=== PATIENT | male | born 1950 | race Caucasian/White ===

== ENCOUNTER 2021-08-10 02:25 | Inpatient (IN) | payer OTHER ==
[~2021-08-10] VITALS: Ht 172.7 cm; Wt 68.0 kg
[2021-08-10 02:28] VITALS: BP 92/61
[2021-08-10 03:17] LABS: URINE BILIRUBIN 2+ (Negative); URINE BLOOD NEGATIVE (Negative); URINE CLARITY CLEAR; URINE COLOR YELLOW; URINE GLUCOSE-RANDOM* NEGATIVE (Negative); URINE KETONES 1+ (Negative); URINE LEUKOCYTES-REFLEX NEGATIVE (Negative); URINE NITRITE-REFLEX NEGATIVE (Negative); URINE PROTEIN (DIPSTICK) NEGATIVE (Negative)
[2021-08-10 03:17] LABS: ABSOLUTE NEUTROPHILS 2.2 thou/uL (1.4-8.2); BASOPHILS 0.5 % (0.0-2.0); EOSINOPHILS 0.1 % (0.0-3.0); HEMATOCRIT 35.9 % (42.0-52.0); HEMOGLOBIN 11.8 gm/dL (14.0-18.0); LYMPHOCYTES 42.1 % (24.0-44.0); MCH 32.7 pg (26.0-34.0); MCHC 32.9 g/dL (28.0-37.0); MCV 99.5 fL (80.0-100.0); MONOCYTES 10.2 % (1.0-8.0); PLATELET COUNT 76 thou/uL (150-400); POLYS 47.1 % (36.0-66.0); RBC 3.61 mil/uL (4.50-6.00); RDW 15.1 % (10.5-14.5); WBC 4.7 thou/uL (4.0-11.0)
[2021-08-10 03:19] LABS: BE(vivo) 2.5 mmol/L (-2 to +3); HCO3 26.1 mmol/L (22.0-26.0); PO2 118.8 mmHg (80.0-100.0); pH 7.467 (7.360-7.450); sO2 98.5 % (92.0-98.0)
[2021-08-10 03:22] LABS: ICTOTEST (BILI CONFIRMATORY) Positive (Negative)
[2021-08-10] MEDS ORDERED: ATORVASTATIN CA80 MG PO (03:23)
[2021-08-10] MEDS ORDERED: VITAMIN B-12100 MC1 PO (03:24)
[2021-08-10 03:25] LABS: AMP/METHAMP Negative (Negative); BARBITURATES Negative (Negative); BENZODIAZEPINES Negative (Negative); COCAINE Negative (Negative); METHADONE Negative (Negative); OPIATES Negative (Negative); PCP Negative (Negative)
[2021-08-10] MEDS ORDERED: FLOMAX0.4 MG PO (03:25)
[2021-08-10] MEDS ORDERED: DIVALPROEX PO (03:25)
[2021-08-10] MEDS ORDERED: LASIX 40 MG TAB40 MG PO (03:25)
[2021-08-10] MEDS ORDERED: MAGNESIUM OXID400 M2 PO (03:26)
[2021-08-10] MEDS ORDERED: METOPROLOL PO (03:26)
[2021-08-10 03:30] LABS: ANION GAP 16 mmol/L (7-16); BUN 11 mg/dL (7-18); CALCIUM 7.7 mg/dL (8.5-10.1); CHLORIDE 97 mmol/L (98-107); CO2 21 mmol/L (21-32); CREATININE 1.2 mg/dL (0.7-1.3); GLUCOSE 77 mg/dL (74-106); POTASSIUM 3.4 mmol/L (3.5-5.1); SODIUM 134 mmol/L (136-145)
[2021-08-10 03:41] LABS: ALBUMIN 1.9 g/dL (3.4-5.0); MAGNESIUM 1.4 mg/dL (1.8-2.4); SALICYLATE < 2.0 mg/dL (2.8-20.0); SGOT 155 U/L (15-37); SGPT 50 U/L (16-63); TOTAL BILIRUBIN 1.4 mg/dL (0.2-1.0); TOTAL PROTEIN 5.9 g/dL (6.4-8.2)
[2021-08-10 03:56] LABS: APTT 30.6 Seconds (24.5-32.8); INR 1.2
[2021-08-10 07:20] VITALS: BP 117/65
--- NOTE | 2021-08-10 07:21 | EKG ---
[place] [address] [facility] [place] [address] ELECTROCARDIOGRAM REPORT Name: CLINTON RENTERIA Room #: 170-11 ADM IN M.R.#: [id number] Admission: 08/10/21 Attend Phys: Mack Nguyễn MD Discharge: Date of : 46 Report #: [id number] [facility] ED Test Date: 2021-08-10 Test Time: 03:35:29 Pat Name: CLINTON RENTERIA Department: Room: 170 Gender: M Nicker And Breaker: kathie corbin : 1950 Requested By: Jackson Morris Order Number: [id number] MD: Mor Laird Measurements Intervals [place] Rate: 53 P: -2 DC: 163 QRS: 0 QRSD: 89 T: 32 QT: 603 QTc: 567 Interpretive Statements Sinus rhythm Borderline low voltage, extremity leads Nonspecific repol abnormality, diffuse leads Prolonged QT interval No previous ECG available for comparison Electronically Signed On 08-10-2021 7:21:11 NATURALIST by Mor Laird [email or web address] <ELECTRONICALLY SIGNED> By: Mor Laird MD, [facility] 08/10/21720 0335 0335 Mor Laird MD, FACC /EPI
--- NOTE | 2021-08-10 08:33 | NUR ---
US AT BEDSIDE
[2021-08-10 12:15] VITALS: BP 106/65
--- NOTE | 2021-08-10 14:28 | NUR ---
INITIAL ASSESSMENT: LEVI reviewed chart and spoke with nursing and attending physician. Pt was admitted from home due to AMS/hepatic encephalopathy. Pt is currently in the ER, awaiting for a bed assignment. Pt with hx of billiary stricture s/p stent placement, hypothyroidism, Cirrhosis of the liver, and bipolar. Pt is currently on 2L of O2 and IV abx. GI consulted. Per chart, pt was recently at the [facility]. LEVI met with pt at bedside. Pt is alert/orientated. Pt requests SW to contact his s/o, Kamila for info. LEVI left voice message for Kamila ([phone]). LEVI is following to assist as needed with discharge planning.
[2021-08-10 16:14] VITALS: BP 125/68
[2021-08-10 20:16] VITALS: BP 106/65
[2021-08-10 22:20] VITALS: BP 137/73
[2021-08-11] VITALS (7 sets, daily range): BP systolic 113–155; BP diastolic 60–78
[2021-08-11 05:13] LABS: ALBUMIN 1.7 g/dL (3.4-5.0); CALCIUM 7.8 mg/dL (8.5-10.1); CREATININE 0.8 mg/dL (0.7-1.3); MAGNESIUM 2.1 mg/dL (1.8-2.4); POTASSIUM 3.4 mmol/L (3.5-5.1); TOTAL BILIRUBIN 1.3 mg/dL (0.2-1.0); TOTAL PROTEIN 5.3 g/dL (6.4-8.2)
[2021-08-11 05:15] LABS: ABSOLUTE NEUTROPHILS 2.5 thou/uL (1.4-8.2); BASOPHILS 0.6 % (0.0-2.0); EOSINOPHILS 0.2 % (0.0-3.0); HEMATOCRIT 36.3 % (42.0-52.0); HEMOGLOBIN 12.1 gm/dL (14.0-18.0); LYMPHOCYTES 28.4 % (24.0-44.0); MCHC 33.4 g/dL (28.0-37.0); PLATELET COUNT 54 thou/uL (150-400); POLYS 56.8 % (36.0-66.0); RBC 3.66 mil/uL (4.50-6.00); RDW 15.3 % (10.5-14.5); WBC 4.5 thou/uL (4.0-11.0)
--- NOTE | 2021-08-11 06:11 | NUR ---
PT ADMITTED TO FLOOR FROM ED AROUND 2200. PT ASSESSED TO BE AOX3 70M PT PRESENTING WITH HEPATIC ENCEPHALOPATHY SECONDARY TO FAILED BILIARY STENT. PT IS STABLE ON ROOM AIR, FLUIDS INFUSING THROUGH L FOREARM IV, SOME BRUISING, BAIG PATENT, SR ON THE MONITOR, OLD LAP SITE ON BELLY WITH DERMABOND, AND AFEBRILE. PT WAS ABLE TO REST THROUGHOUT THE NIGHT WITH NO COMPLAINTS, VSS. PT WILL NEED TO SIGN CONSENTS WHEN HE IS MORE ORIENTED AND ALERT. NO FURTHER COMPLAINTS AT THIS TIME, WILL CONT TO MONITOR.
--- NOTE | 2021-08-11 12:08 | NUR ---
ASSUMED PT CARE THIS AM. PT IS ALERT & ORIENTED X2 AND CONFUSED. PT HAS IV SITE ON LAC. PT IS ON TELE MONITOR ON. PT IS ON CLEAR LIQUID DIET. PT HAS BAIG CATH IN PLACE. PT HAD ACCIDENTALLY FALL THIS AM AND INFORMED HOUSE SUP, HOSPITALIST AND FAMILY. PLACED 4L NC O2. SENT MRSA PCR TO LAB THIS AM. PT ON THE BED SLEEPING, BED ON THE LOWEST POSITION, SIDE RAILS UP, CALL LIGHT WITHIN REACH. WILL CONTINUE TO MONITOR PT. FOLLOW POC.
--- NOTE | 2021-08-11 16:43 | NUR ---
Discussed during los with the attending physician. Lul left message with his sig other zi, # [phone], requested a call back. Possible will requiring skilled stay before dc home.
[2021-08-12 00:21] VITALS: BP 127/72
[2021-08-12 05:25] VITALS: BP 128/83
--- NOTE | 2021-08-12 05:50 | NUR ---
ASSUMED CARE OF PT AT 1900. PT CONTINUES TO BE AOX2 70M PRESENTING WITH HEPATIC ENCEPHALOPATHY. PT WAS ABLE TO REST TRHOUGHOUT THE NIGHT IN BED WITH NO COMPLAINTS, VSS. PT IS STABLE ON 2L O2, SR ON TELEMETRY, LAC IV RUNNING NS, BAIG PATENT, AND ALL FALL PRECAUTIONS IN PLACE. WILL CONT TO MONITOR AND PASS ON TO DAY SHIFT RN.
[2021-08-12 07:40] VITALS: BP 154/75
--- NOTE | 2021-08-12 08:00 | NUR ---
referral sent to [facility].
[2021-08-12 11:17] VITALS: BP 147/86
--- NOTE | 2021-08-12 11:26 | HC ---
[facility] [place] [address] CONSULTATION Name: CLINTON RENTERIA Room #: 439-P ADM IN M.R.#: [id number] Admission: 08/10/21 Attend Phys: Mack Nguyễn MD Discharge: Date of : 46 Report #: [id number] THIS REPORT FOR: cc: [facility] - Clinic physician unknown [facility] - Clinic physician unknown Jared Angeles MD ~ DATE OF SERVICE: 08/11/2021 INFECTIOUS DISEASE CONSULTATION ATTENDING PHYSICIAN: Dr. Nguyễn. REASON FOR EVALUATION: Possible sepsis, suspected obstructive process involving the biliary tract. HISTORY OF PRESENT ILLNESS: Chart reviewed. The patient examined. This is a 70-year-old gentleman with fairly significant medical history, presented to outside hospital with marked hyperbilirubinemia, elevated liver functions. Evaluation suggested an obstructive process. He has been through procedures including ERCP, also liver biopsy, awaiting path results apparently. He had been discharged. He apparently had a fall, perhaps attributable to a syncopal episode. He is unable to give too many details of his history. He does admit to abdominal pain. Initial evaluation, initial ABGs, pO2 of 118.8 on 2.5 liters. Urinalysis otherwise unremarkable. Noted total bilirubin of 1.4 secretion previous, mildly elevated transaminases, alkaline phosphatase of 518. Coronavirus testing was negative. Lactic acid of 7.7. CT of the head showed no acute intracranial process. CT of the C-spine showed no acute fractures, subluxation. CT of the chest, abdomen, and pelvis, moderate right pleural effusion, markedly distended gallbladder with abnormal mural thickening, common bile duct stent is in place with moderate intrahepatic biliary dilatation, ill-defined low attenuation lesions in the right hepatic lobe, pleural thickening of the cecum. Chest x-ray noted effusion, right middle and lower lung opacities. Procalcitonin 0.18. Blood cultures collected at the time of admission are sterile thus far. ALLERGIES: HALDOL. MEDICATIONS: Include tamsulosin, divalproex, Zosyn, vancomycin, ipratropium, albuterol inhaler, lactulose, ondansetron as needed. PAST MEDICAL HISTORY: History of hypothyroidism; previous history of pancreatitis, post-ERCP; recurrent urinary tract infections; history of bipolar disease; anxiety disorder; biliary obstructive process. SOCIAL HISTORY: Former smoker, occasional ethanol, regular user of marijuana. [address] [address] CONSULTATION Name: CLINTON RENTERIA Room #: 439-P [facility] IN M.R.#: [id number] Admission: 08/10/21 Attend Phys: Mack Nguyễn MD Discharge: Date of : 46 Report #: [id number] PHYSICAL EXAMINATION: GENERAL: Appears chronically ill and undernourished, mild to moderate distress. VITAL SIGNS: Temperature 97.8, pulse 77, respirations 16, BP 118/71. SKIN: Warm, dry, no rashes. HEENT: Normocephalic. Extraocular muscles intact. Nasal cannula in place. NECK: Supple. LUNGS: Diminished breath sounds bilaterally. HEART: Regular, soft systolic murmur. ABDOMEN: Mildly distended, mildly firm, may have a mild degree of tenderness on the right upper quadrant. GENITOURINARY AND RECTAL: Deferred. LABORATORY DATA: Recent electrolytes, sodium 138, potassium 3.4, chloride 100, bicarbonate is 27, anion gap of 11, BUN and creatinine 7 and 0.8, glucose of 64, AST of 149, ALT of 47, alkaline phosphatase 47, total bilirubin of 1.3, albumin 17. Total protein 5.3, estimated GFR of 95. CBC: White count of 4.5, H and H 12.1 and 36.3, platelets of 54. Procalcitonin less than 0.18. ASSESSMENT AND PLAN: Probable hepatobiliary obstructive process, certainly could be complicated by infection, low-grade cholangitis. It is reasonable continue empiric therapy. Thank you for allowing me to discontinue the vancomycin and Zosyn to give us reasonable coverage including gram-negative, gram-positive including strep as well as anaerobes, noted evaluation ongoing further define his situation, discussed with GI. They are attempting to get the path report. Remains quite ill at this point. He is at risk for clinical deterioration, monitor expectantly. Continue supportive care. <ELECTRONICALLY SIGNED> By: Jared Angeles MD 08/12/21 1126 1511 0056 Jared Angeles MD /nt
[2021-08-12 15:09] VITALS: BP 115/79
[2021-08-12 19:20] VITALS: BP 107/71
[2021-08-13] VITALS (7 sets, daily range): BP systolic 101–142; BP diastolic 64–78
--- NOTE | 2021-08-13 04:24 | NUR ---
RECEIVED CARE OF THIS PATIENT AT 1900. PATIENT ALERT AND ORIENTED TO PERSON ONLY. CONFUSED. BAIG PATENT. REMAINS ON BEDREST. DENIES PAIN. SLEPT MOST OF NIGHT.
[2021-08-13 10:33] LABS: EOSINOPHILS 0.3 % (0.0-3.0); HEMATOCRIT 35.7 % (42.0-52.0); HEMOGLOBIN 11.9 gm/dL (14.0-18.0); LYMPHOCYTES 28.6 % (24.0-44.0); MCH 32.9 pg (26.0-34.0); MCHC 33.3 g/dL (28.0-37.0); MCV 98.8 fL (80.0-100.0); POLYS 52.1 % (36.0-66.0); RBC 3.61 mil/uL (4.50-6.00); RDW 15.4 % (10.5-14.5); WBC 3.9 thou/uL (4.0-11.0)
[2021-08-13 10:54] LABS: ALBUMIN 1.7 g/dL (3.4-5.0); CALCIUM 8.1 mg/dL (8.5-10.1); CREATININE 0.9 mg/dL (0.7-1.3); POTASSIUM 3.2 mmol/L (3.5-5.1); TOTAL BILIRUBIN 1.4 mg/dL (0.2-1.0); TOTAL PROTEIN 5.6 g/dL (6.4-8.2)
[2021-08-13 13:31] LABS: PLATELET COUNT 68 thou/uL (150-400)
--- NOTE | 2021-08-13 13:49 | NUR ---
ASSUMED CARE THIS MORNING AT 0700. PT IS A/OX4 C/O WEAKNESS. PT IS SB ASST AND CAN AMBULATE TO THE RESTROOM. PT HAS TREMORS AND SOME ISSUES HOLDING ITEMS. ASSESSMENTS NOTED IN CHART AND OTHERWISE UNREMARKABLE. FALL PRECAUTIONS ARE IN PLACE AND PT IS EDUCATED TO CALL BEFORE GETTING UP. CALL LIGHT AND OTHER NEEDS ARE IN REACH. MEDS AND TX GIVEN NEEDED AND SCHEDULED. WILL CONTINUE TO MONITOR AND NOTE ANY CHANGES. PT IS WORKING WITH PHYS LISSET AND OT TODAY.
--- NOTE | 2021-08-14 04:37 | NUR ---
RECEIVED CARE OF THIS PATIENT AT 1900. PATIENT ALERT AND ORIENTED TO PERSON AND PLACE. HAS BAIG WITH DARK FRANCIA URINE WITH SEDIMENT. DENIES PAIN. SLEPT MOST OF NIGHT.
[2021-08-14 07:32] VITALS: BP 106/72
[2021-08-14 16:26] VITALS: BP 105/80
--- NOTE | 2021-08-14 18:00 | NUR ---
PT ASSESSED AT START OF SHIFT. STATES FEELS A LITTLE STRONGER TODAY. HAS SAT IN THE CHAIR TWICE FOR FEW HOURS. APPETITE IS POOR. HAD LARGE SOFT BM THIS AFTERNOON. NO C/O PAIN. GOOD URINE OUTPUT.
[2021-08-15] VITALS (7 sets, daily range): BP systolic 103–144; BP diastolic 67–86
[2021-08-15 06:27] LABS: ABSOLUTE NEUTROPHILS 1.7 thou/uL (1.4-8.2); BASOPHILS 0.7 % (0.0-2.0); EOSINOPHILS 0.3 % (0.0-3.0); HEMATOCRIT 31.8 % (42.0-52.0); HEMOGLOBIN 10.6 gm/dL (14.0-18.0); MCHC 33.4 g/dL (28.0-37.0); MCV 98.9 fL (80.0-100.0); MONOCYTES 20.4 % (1.0-8.0); PLATELET COUNT 49 thou/uL (150-400); POLYS 38.6 % (36.0-66.0); RBC 3.22 mil/uL (4.50-6.00); RDW 15.5 % (10.5-14.5); WBC 4.5 thou/uL (4.0-11.0)
[2021-08-15 06:46] LABS: ALBUMIN 1.6 g/dL (3.4-5.0); CALCIUM 8.1 mg/dL (8.5-10.1); CREATININE 0.7 mg/dL (0.7-1.3); MAGNESIUM 1.2 mg/dL (1.8-2.4); POTASSIUM 3.1 mmol/L (3.5-5.1); TOTAL BILIRUBIN 1.1 mg/dL (0.2-1.0); TOTAL PROTEIN 5.4 g/dL (6.4-8.2)
[2021-08-16 03:37] VITALS: BP 127/81
--- NOTE | 2021-08-16 05:46 | NUR ---
notified anders martinez at beginning of shift that pt slept miserably the prior night despite pain medication and is requesting melatonin or something to help sleep. melatonin and pain meds given, pt slept much better this evening. bed alarm ribbon cutter light in reach
[2021-08-16 08:22] VITALS: BP 122/79
--- NOTE | 2021-08-16 11:19 | NUR ---
K and Mg are low, pt not eating much. Recommend start on electrolyte replacement protocol.
[2021-08-16 12:00] VITALS: BP 105/66
[2021-08-16] MEDS ORDERED: AMOX TR-K CLV1 EAC4 PO (12:12)
[2021-08-16] MEDS ORDERED: LACTULOSE20 GM/30 M PO (12:12)
--- NOTE | 2021-08-16 12:36 | NUR ---
Sent over medicare number to [facility] to check benefits. Dc today to [facility] skilled [facility]. [id number] paper completed. Cm notified sig other zi. cigar packer and picker by [employer] wheel chair van with oxygen [phone]. send chart copy and bedside nurse to call report to [phone].
--- NOTE | 2021-08-16 15:09 | NUR ---
RN SPOKE WITH GINO ABOUT DC. PT IS TO LEAVE THE HOSPITAL WITH THE BAIG CATHETER PER GINO REED. PT BELONGINGS WERE GATHERED AND PLACED NEXT TO PT. PT DRESSED IN OWN CLOTHES. PT INFORMED ABOUT LEAVING HOSPITAL AND GOING TO REHAB FACILITY. PT VERBAIZED UNDERSTANDING. WAITING FOR WHEELCHAIR VAN TO ARRIVE TO TRANSPORT PT. RN CALLED REPORT TO FACILITY.
== END 2021-08-16 15:29 | DRG 444 ==
LOC: ER 02:25 → EROBS 05:59 → 4S 05:59
PROVIDERS: Emergency Medicine; Nurse Practitioner; Specialist; ADMIT Hospitalist; ATTEND Hospitalist
DX: K83.1 Obstruction of bile duct (principal); E43 Unspecified severe protein-calorie malnutrition; J96.01 Acute respiratory failure with hypoxia; R18.8 Other ascites; J91.8 Pleural effusion in other conditions classified elsewhere; E87.2 Acidosis; K83.09 Other cholangitis; K72.90 Hepatic failure, unspecified without coma; K74.60 Unspecified cirrhosis of liver; R29.6 Repeated falls; D69.59 Other secondary thrombocytopenia; E03.9 Hypothyroidism, unspecified; F31.9 Bipolar disorder, unspecified; F41.9 Anxiety disorder, unspecified; E78.5 Hyperlipidemia, unspecified; R53.81 Other malaise; E87.6 Hypokalemia; E83.42 Hypomagnesemia; N40.0 Benign prostatic hyperplasia without lower urinary tract symptoms; F43.10 Post-traumatic stress disorder, unspecified; F03.90 Unspecified dementia, unspecified severity, without behavioral disturbance, psychotic disturbance, mood disturbance, and anxiety; K86.9 Disease of pancreas, unspecified; R41.0 Disorientation, unspecified; Z20.822 Contact with and (suspected) exposure to COVID-19; Z88.8 Allergy status to other drugs, medicaments and biological substances; Z91.013 Allergy to seafood; Z87.891 Personal history of nicotine dependence; Z68.22 Body mass index [BMI] 22.0-22.9, adult
CPT/HCPCS: 10100

== ENCOUNTER 2021-09-09 10:22 | Inpatient (IN) | payer OTHER ==
[~2021-09-09] VITALS: Ht 172.7 cm; Wt 72.8 kg
--- NOTE | ~2021-09-09 | EMS ---
[address] [address] EMS Patient Care Report Name: CLINTON RENTERIA Room #: 462-P ADM IN M.R.#: [id number] Admission: 09/09/21 Attend Phys: Aj Garland Discharge: Date of : 46 Report #: [id number] THIS REPORT FOR: //name// Report Transmitted: 09/13/2021 14:26 EMS Care Summary [place], [place]/[facility] Incident [id number] @ 09/09/2021 09:51 Incident Location [address] [place] [address] Patient CLINTON RENTERIA Male, 70 Years 1950 Patient Address [address] [place] [address] Patient History Hypertension (HTN),Cirrhosis of Liver,Anxiety Disorder (Panic Attacks),Pancreatitis,Alcohol Abuse, Patient Allergies Haldol, Patient Medications Metoprolol, Atorvastatin, Tamsulosin, Chief Complaint abdominal Pain Disposition Transported No Lights/Yeso Dispatch Reason Sick Person Transported To [facility] Narrative M41 dispatched for a 70 year old male conscious and breathing having breathing problems. Arrival at the scene patient is located inside the facility sitting [address] [address] EMS Patient Care Report Name: CLINTON RENTERIA Room #: 462-P ADM IN M.R.#: [id number] Admission: 09/09/21 Attend Phys: Aj Garland Discharge: Date of : 46 Report #: [id number] up in bed. Patient acknowledges EMS presence is GCS15, AAOx4. Patient has a patent airway and is breathing adequately via NC at 4LPM, irregular radial pulses are noted. Patient skin is jaundiced and warm and dry. Patient denies any chest pain or SOB and advises of abdominal pain. Facility advises that the patient is supposed to be a hospice patient but decided last minute that he does not want to go on hospice. Patient is moved to the stretcher using the linen and secured using seatbelts and rails. Patient is moved to the ambulance and placed on the monitor to obtain VS and ECG. IV access is established in the left hand using a 20G IV and secured with a venigard. Atrial fibrillation is noted. Transport is initiated to [facility]. Assessment is conducted. Arrival at the receiving facility patient condition is stable and unchanged. Patient is offloaded and taken to ED room 11. RN is given report and signatures are obtained. Transfer of care is completed and M41 returns to service. Initial Vitals @10:09P: 132,R: 17,BP: 104/68,Pain: 4/10,GCS: 15,SpO2: 95,Revised Trauma: 12,VT Suspected: false @10:06P: 62,R: 22,BP: 72/52,Pain: 4/10,GCS: 15,CO: 1,SpO2: 95,Revised Trauma: 10,VT Suspected: false Assessments @10:00MENTAL:No Abnormalities,SKIN:Jaundiced,HEENT:Head/Face: No Abnormalities,Eyes: No Abnormalities,Neck/Airway: No Abnormalities,LUNG SOUNDS:General: Other,Left Upper: No Abnormalities,Right Upper: No Abnormalities,Left Lower: No Abnormalities,Right Lower: No Abnormalities,ABDOMEN:General: Other,Left Upper: No Abnormalities,Right Upper: No Abnormalities,Left Lower: No Abnormalities,Right Lower: No Abnormalities,PELVIS//GI:No Abnormalities,EXTREMITIES:Left Arm: No Abnormalities,Right Arm: No Abnormalities,Left Leg: No Abnormalities,Right Leg: No Abnormalities,PULSE:Radial: 2+ Normal,NEURO:No Abnormalities, Impression Abdominal Pain Procedures @10:00 ALS Assessment Response: UnchangedSucceeded @10:05 IV Therapy - Saline Lock 10cc (20 ga) Site: Hand-Left Response: UnchangedSucceeded @10:04 3-Lead ECG Response: UnchangedSucceeded Timeline [address] [address] EMS Patient Care Report Name: CLINTON RENTERIA Room #: 462-P ADM IN M.R.#: [id number] Admission: 09/09/21 Attend Phys: Aj Garland Discharge: Date of : 46 Report #: [id number] 09:49,Call Received 09:49,Dispatch Notified 09:51,Dispatched 09:51,En Route 09:57,On Scene 09:59,At Patient 10:00,ALS Assessment,Response: UnchangedSucceeded, 10:04,3-Lead ECG,Response: UnchangedSucceeded, 10:05,IV Therapy - Saline Lock 10cc 20 ga Site: Hand-Left,Response: UnchangedSucceeded, 10:06,BP: 72/52 M,PULSE: 62,RR: 22 R,SPO2: 95 Ox,ETCO2: ,BG: ,PAIN: 4,GCS: 15, 10:09,BP: 104/68 M,PULSE: 132,RR: 17 R,SPO2: 95 Ox,ETCO2: ,BG: ,PAIN: 4,GCS: 15, 10:20,Depart Scene 10:28,At Destination 10:32,Call Closed Disclaimer v1.1 Copyright 2021 [employer] This EMS Care Summary contains data elements from the applicable legal record (which may be displayed differently). It is designed to provide pertinent information for the following purposes: continuity of care, clinical quality, and state data reporting. The complete legal record is available to ED staff and administrators of the receiving hospital in [employer] Patient Tracker. All data is provided "as is."
[~2021-09-09 10:22] MED LIST: AMOX TR-K CLV1 EAC4 PO; ATORVASTATIN CA80 MG PO; DEPAKOTE 250MG250 M1 PO; FLOMAX0.4 MG PO; LACTULOSE20 GM/30 M PO; LASIX 40 MG TAB40 MG PO; LOPRESSOR50 MG PO; MAGNESIUM OXID400 M2 PO; VITAMIN B-12100 MC1 PO
[2021-09-09 10:27] VITALS: BP 87/56
[2021-09-09 10:54] LABS: BASOPHILS 0.3 % (0.0-2.0); HEMATOCRIT 39.8 % (42.0-52.0); LYMPHOCYTES 2.3 % (24.0-44.0); MCH 31.4 pg (26.0-34.0); MCHC 32.6 g/dL (28.0-37.0); MCV 96.3 fL (80.0-100.0); MONOCYTES 3.2 % (1.0-8.0); PLATELET COUNT 171 thou/uL (150-400); POLYS 94.2 % (36.0-66.0); RBC 4.14 mil/uL (4.50-6.00); RDW 16.2 % (10.5-14.5); WBC 18.1 thou/uL (4.0-11.0)
[2021-09-09 11:01] LABS: CALCIUM 8.5 mg/dL (8.5-10.1); CREATININE 1.2 mg/dL (0.7-1.3)
[2021-09-09 11:10] LABS: POTASSIUM 2.9 mmol/L (3.5-5.1)
[2021-09-09 11:11] LABS: ALBUMIN 1.7 g/dL (3.4-5.0); TOTAL BILIRUBIN 5.2 mg/dL (0.2-1.0); TOTAL PROTEIN 6.4 g/dL (6.4-8.2)
--- NOTE | 2021-09-09 12:22 | EKG ---
[facility] [place] [address] ELECTROCARDIOGRAM REPORT Name: CLINTON RENTERIA Room #: 170-11 ADM IN M.R.#: [id number] Admission: 09/09/21 Attend Phys: Aj Garland Discharge: Date of : 46 Report #: [id number] [facility] ED Test Date: 2021-09-09 Test Time: 10:31:50 Pat Name: CLINTON RENTERIA Department: Room: 170 Gender: M Electrician Control Equipment: JELANI : 1950 Requested By: Maria A Romo Order Number: [id number] MD: Mor Laird Measurements Intervals [place] Rate: 132 P: -18 MT: 123 QRS: -13 QRSD: 73 T: 160 QT: 275 QTc: 408 Interpretive Statements AFIB Compared to ECG 08/10/2021 03:35:29 Ventricular premature complex(es) now present T-wave abnormality now present Possible ischemia now present Sinus rhythm no longer present Electronically Signed On 09-09-2021 12:22:49 TUBING MILL OPERATOR by Mor Laird [email or web address] <ELECTRONICALLY SIGNED> By: Mor Laird MD, [facility] 09/09/21 1222 1031 1031 Mor Laird MD, FAC /EPI
[2021-09-09 13:22] LABS: URINE BILIRUBIN 3+ (Negative); URINE BLOOD TRACE (Negative); URINE CLARITY CLEAR; URINE GLUCOSE-RANDOM* TRACE (Negative); URINE KETONES TRACE (Negative); URINE LEUKOCYTES-REFLEX NEGATIVE (Negative); URINE PROTEIN (DIPSTICK) 2+ (Negative)
[2021-09-09 13:28] LABS: URINE NITRITE-REFLEX POSITIVE (Negative)
[2021-09-09 13:30] LABS: ICTOTEST (BILI CONFIRMATORY) Positive (Negative); URINE COLOR DARK YELLOW
[2021-09-09 13:31] LABS: FINE GRANULAR CASTS 0-3 Few /LPF (None Seen); HYALINE CASTS 0-3 Few /LPF (None Seen); SQUAMOUS 4-10 Moderate /LPF (0-3); URINE WBC-REFLEX 0-5 Rare /HPF (0-5)
[2021-09-09 13:32] LABS: AMORPHOUS URATES Few /LPF (None Seen); BACTERIA-REFLEX 1-9 Few /HPF (None Seen); URINE RBC None Seen /HPF (NONE SEEN)
[2021-09-09 15:37] VITALS: BP 101/74
[2021-09-09 16:00] VITALS: BP 100/70
[2021-09-09] MEDS ORDERED: LIDODERM1 EACH TRANSDERM (17:59)
--- NOTE | 2021-09-09 18:13 | NUR ---
ADMISSION NOTE: PT ADMITTED IN ROOM 462. ALERT AND ORIENTED X4, FORGETFUL AND CONFUSE AT TIMES. CURRENTLY ON 4L OXYGEN, SOB WITH EXERTION. PT HAS A NPC, WANTED COUGH DROPS. DR. NATALIE PELAEZ TO VERIFY PT CODE STATUS AND ORDER FOR COUGH DROP NO ANSWER. PT CHART FROM COULTER STATED PT IS FULL CODE. SKIN INTACT. BAIG PLACED BY ED NURSE, PATENT AND SECURED. PT SIGNIFICANT OTHER CALLED, UPDATED ABOUT PT CARE. CONSENTS SIGNED BY PT. FALL AND ENHANCED PRECAUTIONS IN PLACE. PHARMACY MADE AWARE TO VERIFY PT DOSAGE FOR DIVALPROEX.
[2021-09-09 20:02] VITALS: BP 102/72
[2021-09-10 00:39] VITALS: BP 96/63
[2021-09-10 03:44] LABS: D-DIMER 2.44 ug/mLFEU (0.19-0.50); INR 1.29; PROTIME 13.9 Seconds (10.5-12.1)
[2021-09-10 03:59] LABS: ABSOLUTE NEUTROPHILS 12.6 thou/uL (1.4-8.2); BASOPHILS 0.1 % (0.0-2.0); HEMATOCRIT 32.4 % (42.0-52.0); LYMPHOCYTES 8.3 % (24.0-44.0); MCH 32.4 pg (26.0-34.0); MCHC 32.2 g/dL (28.0-37.0); MCV 100.5 fL (80.0-100.0); MONOCYTES 3.6 % (1.0-8.0); PLATELET COUNT 149 thou/uL (150-400); RBC 3.22 mil/uL (4.50-6.00); RDW 16.9 % (10.5-14.5); WBC 14.4 thou/uL (4.0-11.0)
[2021-09-10 04:02] LABS: CALCIUM 7.7 mg/dL (8.5-10.1); POTASSIUM 3.5 mmol/L (3.5-5.1)
[2021-09-10 04:06] LABS: ALBUMIN 1.2 g/dL (3.4-5.0); MAGNESIUM 1.9 mg/dL (1.8-2.4); TOTAL BILIRUBIN 3.7 mg/dL (0.2-1.0); TOTAL PROTEIN 5.4 g/dL (6.4-8.2)
[2021-09-10 04:10] LABS: HEMOGLOBIN 10.4 gm/dL (14.0-18.0)
--- NOTE | 2021-09-10 04:34 | NUR ---
PT IS A/O X4 AND IS ON BEDREST DUE TO WEAKNESS AND INABILITY TO STAND. PT IS ON 4 LITERS O2 PER NC. SOB WITH EXERTION. MEDICATIONS GIVEN PER MAR. PT DENIES C/O PAIN OR DISCOMFORT. LAB CALLED TO NOTIFY BLOOD CULTURE POSITIVE WITH GRAM NEGATIVE RODS. DR ANDERSON ON THE UNIT AT TIME OF CALL AND WAS NOTIFIED. ORDERS GIVEN AND CARRIED OUT. FALL PRECAUTIONS IN PLACE, CALL LIGHT IS WITHIN REACH.
[2021-09-10 04:41] LABS: DIRECT BILIRUBIN 2.7 mg/dL (<0.1-0.2); PHOSPHORUS 3.5 mg/dL (2.5-4.9)
[2021-09-10 06:12] VITALS: BP 106/60
[2021-09-10] MEDS ORDERED: DEPAKOTE 250MG250 M1 PO (06:13)
[2021-09-10 08:08] VITALS: BP 105/70
[2021-09-10 12:45] VITALS: BP 104/68
[2021-09-10 13:39] LABS: CLARITY CLEAR; COLOR YELLOW; SOURCE ABDOMINAL; TOTAL VOLUME 60 mL
[2021-09-10 13:53] LABS: BF NUCLEATED CELLS 324 /mm3; BF RBC 482 /mm3
[2021-09-10 15:06] LABS: BF MACROPHAGE 33 %; BF NEUTROPHILS 12 %
--- NOTE | 2021-09-10 15:06 | NUR ---
PT ADMITTED RELATED TO SEPTIC SHOCK. CM REVIEWED CHART AND SPOKE WITH CARE TEAM. CM ATTEMPTED PC TO PT'S ROOM X2 WITH NO ANSWER. NURSE INDICATED PT IS SLEEPING. CM CALLED PT'S SISTER ARTUR WEIGHT AND PT'S SIG OTER MCKENZIE . CM ROLE INTORDUCED. PT HAD DISCHARGED FROM HERE 08/16/21 TO [facility]. PHYSICIAN HAD SPOKEN WITH PT'S SISTER AND SIG OTHER ABOUT POSSIBLE ELECTING HOSPICE SERVICES. SISTER INDICATED SHE WAS GETTING INFO FROM [facility] AND WOULD FOLLOW PT'S PREFERANCE. SIG OTEHR INDICATED SHE WAS UPSET THAT [facility] MADE IT SOUND LIKE PT HAD NO HOPE. SIG OTEHR INDICATED SHE DIDN'T LIKE [facility]. CM TO TEST HER PICS OF SNF LIST FOR REVIEW FOR POTENTIAL ALTERNATE PLACEMENT. HOSPICE PALLIATIVE CARE MAIL HANDLER ASSISTANT CONSULTED. CM SPOKE WITH MAIL HANDLER ASSISTANT AND PROVIDED INFO. CM FOLLOWING REGARDING DC PLANNING NEEDS.
[2021-09-10 16:17] VITALS: BP 113/79
[2021-09-10 20:07] VITALS: BP 114/75
--- NOTE | 2021-09-11 05:23 | NUR ---
patient aox4 makes needs known. patient had x2 bm this shift. patient has soa with adls. patient incontient this shift pericare and cath care done, barrier crream applied.patient on 4l of oxygen, no soa or distress noted this shift. fall precaution in place. patient in bed asleep at this time breathing regular and unlaboured.
[2021-09-11 05:49] LABS: HEMATOCRIT 30.5 % (42.0-52.0); MCH 31.7 pg (26.0-34.0); MCHC 32.8 g/dL (28.0-37.0); MCV 96.6 fL (80.0-100.0); RBC 3.16 mil/uL (4.50-6.00); RDW 15.9 % (10.5-14.5)
[2021-09-11 05:59] LABS: ALBUMIN 1.1 g/dL (3.4-5.0); CALCIUM 7.7 mg/dL (8.5-10.1); CREATININE 0.9 mg/dL (0.7-1.3); POTASSIUM 3.2 mmol/L (3.5-5.1); TOTAL PROTEIN 5.1 g/dL (6.4-8.2)
[2021-09-11 06:01] LABS: DIRECT BILIRUBIN 3.7 mg/dL (<0.1-0.2); PHOSPHORUS 2.6 mg/dL (2.6-4.7)
[2021-09-11 07:36] VITALS: BP 115/79
[2021-09-11 11:47] VITALS: BP 115/79
[2021-09-11 15:33] VITALS: BP 116/80
[2021-09-11 21:15] VITALS: BP 104/70
--- NOTE | 2021-09-11 22:37 | HC ---
[facility] [place] [address] CONSULTATION Name: CLINTON RENTERIA Room #: 462-P ADM IN M.R.#: [id number] Admission: 09/09/21 Attend Phys: Aj Garland Discharge: Date of : 46 Report #: [id number] THIS REPORT FOR: cc: Brad Mitchell MD, Srinath MD Geha,Jorje Rubi MD ~ DATE OF SERVICE: 09/09/2021 INFECTIOUS DISEASE CONSULTATION REASON FOR CONSULTATION: I was asked to evaluate concerning COVID-19 infection and Gram-negative bacteremia. HISTORY OF PRESENT ILLNESS:. The patient is a 70-year-old who was admitted from a local nursing home facility with generalized weakness, increased jaundice. He has had a low-grade fever and dyspnea. He was tested positive for COVID-19. He has been evaluated for mass in his common hepatic duct. This was biopsied previously, but do not have the results available. A stent has been placed and he underwent a sphincterotomy previously. Imaging studies today show that the right hepatic duct stent may be obstructed. He was also screened positive for COVID-19 with chronic appearing right lung pulmonary infiltrate. He is on oxygen per nasal cannula. Denies any chest pain, cough or sputum production. He is a very poor historian. Denies any nausea, vomiting or diarrhea. He has had abdominal distention. ALLERGIES: HALOPERIDOL, SHELLFISH. MEDICATIONS: As noted on his MAR, which were reviewed. PAST MEDICAL HISTORY: Panic disorder, OCD, hyperlipidemia, liver biopsy, pancreatitis, post-ERCP, UTI, urinary retention, now with indwelling Myrick catheter, hypothyroidism, diastolic dysfunction, bipolar disorder. FAMILY HISTORY: No report of tuberculosis. SOCIAL HISTORY: Past smoker, uses alcohol, none currently. REVIEW OF SYSTEMS: A 14-point review is negative other than what has been described above. PHYSICAL EXAMINATION: GENERAL: Afebrile, hemodynamically stable. He was awake, conversant, somewhat confused, icteric, abdominal distention, pale. No adenopathy. No rashes. Several excoriations to his ___. No CVA tenderness. External genitalia without mass, had indwelling Myrick catheter. RECTAL: Not performed. [facility] [address] [place] [address] CONSULTATION Name: CLINTON RENTERIA Room #: 462 ADM IN M.R.#: [id number] Admission: 09/09/21 Attend Phys: Aj Garland Discharge: Date of : 46 Report #: [id number] SPINE: Nontender. EXTREMITIES: Without clubbing, cyanosis or edema. NEUROLOGIC: Cranial nerves intact. Strength in upper and lower extremities was symmetric, generalized weakness. LABORATORY DATA: Reviewed. Microbiology reviewed. Chest x-ray reviewed. IMPRESSION: 1. COVID-19 infection with hypoxia, suspect a component of pneumonia. 2. Gram-negative bacteremia, felt related to cholangitis and may have an obstructed biliary stent, cirrhosis with ascites, thrombocytopenia previously, now improved, toxic metabolic encephalopathy. RECOMMENDATION: We will continue treatment for COVID-19 with remdesivir. Due to his oxygen requirements, we will add corticosteroids. We will also treat with gram-negative coverage for his bacteremia. We will have GI see him for I suspect he has issues with his biliary stent. Check serial laboratory studies. Obtain pathology reports. <ELECTRONICALLY SIGNED> By: Jorje Browning MD 09/11/21 2237 2144 2329 Jorje Browning MD /nt
--- NOTE | 2021-09-12 03:36 | NUR ---
patient aox confused and forgetful. patient on 4l of oxygem, no soa or distress noted. patient has a flat affect, poor eye contact. patient incontient pericare and barrier cream applied. fall precaution in place. patient in bed asleep at this time breathing regular and unlaboured.
[2021-09-12 04:45] VITALS: BP 116/76
[2021-09-12 06:13] LABS: ALBUMIN 1.1 g/dL (3.4-5.0); CALCIUM 7.4 mg/dL (8.5-10.1); CREATININE 0.8 mg/dL (0.7-1.3); DIRECT BILIRUBIN 5.5 mg/dL (<0.1-0.2); PHOSPHORUS 2.7 mg/dL (2.5-4.9); POTASSIUM 3.4 mmol/L (3.5-5.1); TOTAL BILIRUBIN 6.2 mg/dL (0.2-1.0); TOTAL PROTEIN 4.8 g/dL (6.4-8.2)
[2021-09-12 08:41] LABS: SOURCE ABDOMINAL
[2021-09-12 09:11] VITALS: BP 121/82
[2021-09-12 11:56] VITALS: BP 115/79
[2021-09-12 17:32] VITALS: BP 115/82
[2021-09-12 19:05] VITALS: BP 112/75
[2021-09-13 00:05] LABS: HIV ANTIBODY Non Reactive (Non Reactive)
[2021-09-13 04:33] VITALS: BP 106/65
--- NOTE | 2021-09-13 05:37 | NUR ---
patient aox3 confused and forgetful. no soa or distress noted this shift. pericare and cath care done this shift. fall precaution in place.patient in bed asleep at this time breathing regular and unlaboured.
[2021-09-13 07:36] VITALS: BP 109/67
[2021-09-13 08:31] LABS: ALBUMIN 1.2 g/dL (3.4-5.0); CALCIUM 8.4 mg/dL (8.5-10.1); CREATININE 0.8 mg/dL (0.7-1.3); DIRECT BILIRUBIN 9.1 mg/dL (<0.1-0.2); POTASSIUM 3.8 mmol/L (3.5-5.1); TOTAL PROTEIN 5.2 g/dL (6.4-8.2)
[2021-09-13 08:33] LABS: TOTAL BILIRUBIN 11.6 mg/dL (0.2-1.0)
[2021-09-13 09:34] LABS: T-SPOT.TB Negative
[2021-09-13 10:07] LABS: BODY FLUID ALBUMIN 1.5 g/dL (Not Estab.); BODY FLUID AMYLASE 24 U/L (()); BODY FLUID GLUCOSE 153 mg/dL (()); BODY FLUID LDH 189 IU/L (()); BODY FLUID PROTEIN 3.3 g/dL (())
[2021-09-13 11:25] VITALS: BP 109/67
[2021-09-13 11:55] VITALS: BP 109/73
--- NOTE | 2021-09-13 15:46 | NUR ---
CARE TEAM HAD CONSULTED HOSPICE/PALLIATIVE CARE PECAN CLEANER LAST MONDAY. AWAITING VISIT WITH PT AND FAMILY PT'S SISTER ARTUR WEIGHT AND PT'S SIG LIONEL RINCON . CM FOLLOWING REGARDING DETERMINATION OD DESIRED DC DISPOSITION TO ASSIST WITH SERVICES AND SUPPORTS.
[2021-09-13 16:58] VITALS: BP 108/78
--- NOTE | 2021-09-13 18:40 | NUR ---
PT SOLEMN TODAY AFTER HEARING CA DX, REPORTS HE DOES NOT WANT TO TALK TO ANYONE ABOUT WHAT IS GOING ON WITH HIM. FALL PRECAUTIONS MAINTAINED. ENCOURAGED TO USE CALL LIGHT
[2021-09-13 20:03] VITALS: BP 121/74
--- NOTE | 2021-09-14 04:00 | NUR ---
ALERT AND ORIENTED. FLAT AFFECT. PAIN MEDS GIVEN X 1 FOR ABDOMINAL PAIN.BAIG TO D/D. ON /NC.
[2021-09-14 05:15] VITALS: BP 119/76
[2021-09-14 07:47] VITALS: BP 129/88
[2021-09-14] MEDS ORDERED: CEFUROXIME500 MG PO (09:17)
[2021-09-14 11:36] VITALS: BP 116/79
--- NOTE | 2021-09-14 13:08 | PATH ---
[facility] [address] [place] [address] PATHOLOGY RPT PROCEDURE Name: CLINTON RENTERIA Room #: 462-P ADM IN M.R.#: [id number] Admission: 09/09/21 Date of : 46 Discharge: Report #: [id number] Path Case #: [id number] Note [facility] Accession Number: [id number] TESTS RESULT FLAG UNITS REF RANGE LAB Clinician Provided Cytology Information No. of containers..01 Other (Miscellaneous) Source: PERITONEAL DIAGNOSIS: 02 PERITONEAL NEGATIVE FOR MALIGNANT CELLS. PAUCICELLULAR SPECIMEN WITH FEW MESOTHELIAL AND INFLAMMATORY CELLS. THIS INTERPRETATION INCLUDES EVALUATION OF A CELL BLOCK. Signed out by: 02 Emre Pressley MD, Pathologist NPI- [id number] Performed by: 01 Meme Maya Full Stack Python Developer ([facility]) Gross description: 01 5ML, YELLOW, HAZY /LCS 09/11/2021 0027 Local FLAG LEGEND: L-Low Normal,H-High Normal,LL-Alert Low,HH-Alert High <-Panic Low,>-Panic High,A-Abnormal,AA-Critical Abnormal Performed at: [address] [place] [address] Nic Abreu MD, [address] [place] [address] [facility], [place] [address] Emre Pressley MD, Specimen Comment: A courtesy copy of this report has been sent to [phone], [phone] Specimen Comment: [phone] Specimen Comment: Report sent to / DR ABERNATHY Specimen Comment: A duplicate report has been generated due to demographic updates. Performed at: [address], [place], [place] [id number] MD Nic Abreu MD Phone: [phone]
--- NOTE | 2021-09-14 14:39 | NUR ---
HOSPICE/PALLIATIVE CARE REFINED SYRUP OPERATOR VISITED WITH PT AGAIN THIS DAY AND AGAIN PT WASN'T RECEPTIVE TO SPEAKING TO HER. HOSPITALIST INDICATED THAT PT IS MEDICALLY STABLE TO DISCHARGE THIS DAY. CM CALLED AND SPOKE WITH PT AND INDICATED THAT CM WAS AWARE THAT HE HAD BEEN VISITED BY OLINDA BUT THAT HE WASN'T INTERESTED IN MAKING A DEFINITIVE CARE DECISION AT THIS TIME. CM EXPRESSED UNDERSTANGING BUT INDICATED THAT CARE TEAM HAS INDICATED THAT HE IS MEDICALLY STABLE TO DISHCHARGE. CM INDICATED THAT [facility] IS ABLE TO TAKE PT BACK SKILLED THIS DAY AND THAT PT COULD RETURN THERE AND RECIEVE 24/ SUPERVISION, ASSISTANCE, AND CONTINUED REHAB UNTIL HE DETERMINES WHAT HIS ULTIMATE GOALS OF CARE AND PREFERANCES ARE. PT EXPRESSED UNDERSTANDING. CM FAXED ORDERS. CHART COPY MADE. TRANSPORT IS ARRANGED VIA STRETCHER [phone] 3L O2. CM ATTEMTPED PC TO PT'S SIG OTHER MCKENZIE WITH NO ANSWER HER VM IS FULL. CM CALLED PT'S SISTER ARTUR LUNA AND NOTIFIED HER OF THE ABOVE. SHE EXPRESSED UNDERSTANDING. PT TO DISCHARGE TO [facility] SKILLED THIS DAY VIA STRETCHER [phone] PT AND SISTER ARE AWARE AND AGREEABLE. NO OTHER CM INTERVENTION INDICATED. CASE CLOSED.
== END 2021-09-14 16:51 | DRG 871 ==
LOC: ER 10:22 → 4W 11:56 → EROBS 11:56 → 4W 16:18
PROVIDERS: Emergency Medicine; Specialist; ADMIT Hospitalist; ATTEND Hospitalist
PROC: XW033E5 Introduction of Remdesivir Anti-infective into Peripheral Vein, Percutaneous Approach, New Technology Group 5 (ICD-10-PCS; principal; 2021-09-09)
PROC: 0W9G3ZZ Drainage of Peritoneal Cavity, Percutaneous Approach (ICD-10-PCS; 2021-09-10)
DX: A41.59 Other Gram-negative sepsis (principal); U07.1 COVID-19; J12.82 Pneumonia due to coronavirus disease 2019; K83.1 Obstruction of bile duct; E43 Unspecified severe protein-calorie malnutrition; R65.21 Severe sepsis with septic shock; J96.91 Respiratory failure, unspecified with hypoxia; G92.8 Other toxic encephalopathy; R64 Cachexia; K83.09 Other cholangitis; R18.0 Malignant ascites; J91.8 Pleural effusion in other conditions classified elsewhere; K86.9 Disease of pancreas, unspecified; E87.6 Hypokalemia; D69.6 Thrombocytopenia, unspecified; E78.5 Hyperlipidemia, unspecified; F41.9 Anxiety disorder, unspecified; E66.9 Obesity, unspecified; F31.9 Bipolar disorder, unspecified; E03.9 Hypothyroidism, unspecified; N40.0 Benign prostatic hyperplasia without lower urinary tract symptoms; K74.60 Unspecified cirrhosis of liver; Z66 Do not resuscitate; Z79.899 Other long term (current) drug therapy; Z68.20 Body mass index [BMI] 20.0-20.9, adult; Z91.013 Allergy to seafood; Z87.891 Personal history of nicotine dependence
CPT/HCPCS: 10045; 10047

== ENCOUNTER 2021-09-18 05:54 | Inpatient (IN) | payer OTHER ==
[~2021-09-18] VITALS: Ht 172.7 cm; Wt 75.5 kg
--- NOTE | ~2021-09-18 | EMS ---
[address] [address] EMS Patient Care Report Name: CLINTON RENTERIA Room #: REG JASWINDER Hernández#: [id number] Admission: 09/18/21 Attend Phys: Discharge: Date of : 46 Report #: [id number] THIS REPORT FOR: //name// Report Transmitted: 09/18/2021 07:13 EMS Care Summary [place], [place]/[facility] Incident [id number] @ 09/18/2021 05:19 Incident Location [id number] [place] [address] Patient CLINTON RENTERIA Male, 70 Years 1950 Patient Address [address] [place] [address] Patient History Hypertension (HTN),Cirrhosis of Liver,Anxiety Disorder (Panic Attacks),Pancreatitis,Alcohol Abuse, Patient Allergies Haldol, Patient Medications Metoprolol, Atorvastatin, Tamsulosin, Chief Complaint unresponsive Disposition Transported Lights/[place] Dispatch Reason Unconscious/Fainting Transported To [facility] Narrative pt has a biliary obstruction and was at [facility] yesterday for a liver biopsy. per staff, last night pt was alert and talking and able to take his oral meds. [address] [address] EMS Patient Care Report Name: CLINTON RENTERIA Room #: REG Krissy.#: [id number] Admission: 09/18/21 Attend Phys: Discharge: Date of : 46 Report #: [id number] this am pt is unresponsive, hypotensive and hypoxic. pt is to be seen at [facility] ER. pt moved to [facility], /[facility], [place] as listed in flow chart. transport emergent. report to staff on arrival rm 12. Initial Vitals @05:50Glucose: 79, @05:36P: 100,R: 36,GCS: 3,Glucose: 69,SpO2: 90, Assessments @05:28MENTAL:Unresponsive,SKIN:Jaundiced,HEENT:Head/Face: No Abnormalities,LUNG SOUNDS:General: Other,ABDOMEN:General: Other,PELVIS//GI:EXTREMITIES:PULSE:Carotid: 2+ Normal,Brachial: Absent,NEURO: Impression Altered Mental Status Procedures @05:28 ALS Assessment Response: Unchanged @05:36 3-Lead ECG Response: Unchanged @05:39 IV Therapy - Saline Lock 200cc (20 ga) Site: Hand-Left Response: UnchangedSucceeded @05:31 Stretcher Response: Unchanged @05:29 Oxygen FlowRate: 15 Device: Non Re-breather Mask (NRB) Response: ImprovedSucceeded @05:36 IV Therapy - Saline Lock 0cc (20 ga) Site: Antecubital-Right Response: UnchangedFailed @05:43 Dextrose 10% - 100 Milliliters (ml) - Intravenous (IV) Response: Unchanged Timeline 05:18,Call Received 05:18,Dispatch Notified 05:19,Dispatched 05:20,En Route 05:26,On Scene 05:28,At Patient 05:28,ALS Assessment,Response: Unchanged 05:29,Oxygen FlowRate: 15 Device: Non Re-breather Mask (NRB) Response: ImprovedSucceeded, 05:31,Stretcher,Response: Unchanged 05:36,3-Lead ECG,Response: Unchanged 05:36,BP: / M,PULSE: 100,RR: 36 R,SPO2: 90 Ox,ETCO2: ,B,PAIN: ,GCS: 3, 05:36,IV Therapy - Saline Lock 0cc 20 ga Site: Antecubital-Right,Response: UnchangedFailed, 05:39,IV Therapy - Saline Lock 200cc 20 ga Site: Hand-Left,Response: [facility] [address] [place] [address] EMS Patient Care Report Name: CLINTON RENTERIA Room #: REG [facility].#: [id number] Admission: 09/18/21 Attend Phys: Discharge: Date of : 46 Report #: [id number] UnchangedSucceeded, 05:42,Depart Scene 05:43,Dextrose 10% - 100 Milliliters (ml) - Intravenous (IV),Response: Unchanged 05:50,At Destination 05:50,BP: / M,PULSE: ,RR: R,SPO2: Ox,ETCO2: ,B,PAIN: ,GCS: , 06:09,Call Closed Disclaimer v1.1 Copyright 2021 [employer] This EMS Care Summary contains data elements from the applicable legal record (which may be displayed differently). It is designed to provide pertinent information for the following purposes: continuity of care, clinical quality, and state data reporting. The complete legal record is available to ED staff and administrators of the receiving hospital in [facility]'s Patient Tracker. All data is provided "as is."
--- NOTE | ~2021-09-18 | EMS ---
[address] [address] EMS Patient Care Report Name: CLINTON RENTERIA Room #: REG JASWINDER Hernández#: [id number] Admission: 09/18/21 Attend Phys: Discharge: Date of : 46 Report #: [id number] THIS REPORT FOR: //name// Report Transmitted: 09/18/2021 06:09 EMS Care Summary [place], [place]/[facility] Incident [id number] @ 09/18/2021 05:19 Incident Location [id number] [place], [place] [address] Patient CLINTON RENTERIA Male, 70 Years 1950 Patient Address [address] [place] [address] Patient History Hypertension (HTN),Cirrhosis of Liver,Anxiety Disorder (Panic Attacks),Pancreatitis,Alcohol Abuse, Patient Allergies Haldol, Patient Medications Metoprolol, Atorvastatin, Tamsulosin, Chief Complaint unresponsive Disposition Transported [place] Dispatch Reason Unconscious/Fainting Transported To [facility] Narrative pt has a biliary obstruction and was at [facility] yesterday for a liver biopsy. per staff, last night pt was alert and talking and able to take his oral meds. [address] [address] EMS Patient Care Report Name: CLINTON RENTERIA Room #: REG Krissy.#: [id number] Admission: 09/18/21 Attend Phys: Discharge: Date of : 46 Report #: [id number] this am pt is unresponsive, hypotensive and hypoxic. pt is to be seen at [facility] ER. pt moved to [facility], [place] as listed in flow chart. transport emergent. report to staff on arrival rm 12. Initial Vitals @05:50Glucose: 79, @05:36P: 100,R: 36,GCS: 3,Glucose: 69,SpO2: 90, Assessments @05:28MENTAL:Unresponsive,SKIN:Jaundiced,HEENT:Head/Face: No Abnormalities,LUNG SOUNDS:General: Other,ABDOMEN:General: Other,PELVIS//GI:EXTREMITIES:PULSE:Carotid: 2+ Normal,Brachial: Absent,NEURO: Impression Altered Mental Status Procedures @05:28 ALS Assessment Response: Unchanged @05:36 3-Lead ECG Response: Unchanged @05:39 IV Therapy - Saline Lock 200cc (20 ga) Site: Hand-Left Response: UnchangedSucceeded @05:31 Stretcher Response: Unchanged @05:29 Oxygen FlowRate: 15 Device: Non Re-breather Mask (NRB) Response: ImprovedSucceeded @05:36 IV Therapy - Saline Lock 0cc (20 ga) Site: Antecubital-Right Response: UnchangedFailed @05:43 Dextrose 10% - 100 Milliliters (ml) - Intravenous (IV) Response: Unchanged Timeline 05:18,Call Received 05:18,Dispatch Notified 05:19,Dispatched 05:20,En Route 05:26,On Scene 05:28,At Patient 05:28,ALS Assessment,Response: Unchanged 05:29,Oxygen FlowRate: 15 Device: Non Re-breather Mask (NRB) Response: ImprovedSucceeded, 05:31,Stretcher,Response: Unchanged 05:36,3-Lead ECG,Response: Unchanged 05:36,BP: / M,PULSE: 100,RR: 36 R,SPO2: 90 Ox,ETCO2: ,B,PAIN: ,GCS: 3, 05:36,IV Therapy - Saline Lock 0cc 20 ga Site: Antecubital-Right,Response: UnchangedFailed, 05:39,IV Therapy - Saline Lock 200cc 20 ga Site: Hand-Left,Response: [facility] [address] [place] [address] EMS Patient Care Report Name: CLINTON RENTERIA Room #: REG [facility].#: [id number] Admission: 09/18/21 Attend Phys: Discharge: Date of : 46 Report #: [id number] UnchangedSucceeded, 05:42,Depart Scene 05:43,Dextrose 10% - 100 Milliliters (ml) - Intravenous (IV),Response: Unchanged 05:50,At Destination 05:50,BP: / M,PULSE: ,RR: R,SPO2: Ox,ETCO2: ,B,PAIN: ,GCS: , 06:09,Call Closed Disclaimer v1.1 Copyright 2021 [employer] This EMS Care Summary contains data elements from the applicable legal record (which may be displayed differently). It is designed to provide pertinent information for the following purposes: continuity of care, clinical quality, and state data reporting. The complete legal record is available to ED staff and administrators of the receiving hospital in [facility]'s Patient Tracker. All data is provided "as is."
[~2021-09-18 05:54] MED LIST changes: +CEFUROXIME500 MG PO; +LIDODERM1 EACH TRANSDERM
[2021-09-18 06:06] LABS: BE(vivo) -3.6 mmol/L (-2 to +3); HCO3 18.9 mmol/L (22.0-26.0); PCO2 26.9 mmHg (35.0-45.0); PO2 67.3 mmHg (80.0-100.0); pH 7.465 (7.360-7.450); sO2 94.7 % (92.0-98.0)
[2021-09-18 06:50] LABS: URINE BILIRUBIN 3+ (Negative); URINE BLOOD 1+ (Negative); URINE CLARITY CLEAR; URINE GLUCOSE-RANDOM* TRACE (Negative); URINE KETONES 1+ (Negative); URINE LEUKOCYTES-REFLEX TRACE (Negative); URINE PROTEIN (DIPSTICK) 1+ (Negative)
[2021-09-18 06:56] LABS: URINE NITRITE-REFLEX POSITIVE (Negative)
[2021-09-18 06:57] LABS: ICTOTEST (BILI CONFIRMATORY) Positive (Negative); URINE COLOR DK AMBER
[2021-09-18 07:01] LABS: CALCIUM 8.3 mg/dL (8.5-10.1); CREATININE 1.5 mg/dL (0.7-1.3)
[2021-09-18 07:05] LABS: HEMATOCRIT 31.5 % (42.0-52.0); HEMOGLOBIN 10.7 gm/dL (14.0-18.0); MCH 32.5 pg (26.0-34.0); MCHC 33.9 g/dL (28.0-37.0); PLATELET COUNT 325 thou/uL (150-400); RBC 3.28 mil/uL (4.50-6.00); RDW 17.1 % (10.5-14.5)
[2021-09-18 07:16] LABS: ALBUMIN 1.3 g/dL (3.4-5.0); DIRECT BILIRUBIN 15.1 mg/dL (<0.1-0.2)
[2021-09-18 07:17] LABS: TOTAL BILIRUBIN 19.5 mg/dL (0.2-1.0)
[2021-09-18 07:23] LABS: MUCUS >6 Heavy strn/LPF (None Seen); SQUAMOUS 0-3 Few /LPF (0-3)
[2021-09-18 07:24] LABS: URINE WBC-REFLEX 0-5 Rare /HPF (0-5)
[2021-09-18 07:25] LABS: BACTERIA-REFLEX 1-9 Few /HPF (None Seen); URINE RBC 1-2 Rare /HPF (NONE SEEN)
[2021-09-18 07:28] LABS: CASTS None Seen /LPF (None Seen); CRYSTALS None Seen /LPF (None Seen)
[2021-09-18 07:29] LABS: WBC CLUMPS Occasional (None Seen)
[2021-09-18 08:50] LABS: ABSOLUTE NEUTROPHILS 9.4 thou/uL (1.4-8.2); MYELOCYTES 1 %
[2021-09-18 08:52] LABS: ANISOCYTOSIS 1+; NUCLEATED RBCS 2 /100WBC
[2021-09-18 08:53] LABS: POIKILOCYTOSIS SLIGHT
[2021-09-18 08:54] LABS: SCHISTOCYTES OCCASIONAL
--- NOTE | 2021-09-18 11:27 | EKG ---
[place] [address] [address] [address] ELECTROCARDIOGRAM REPORT Name: CLINTON RENTERIA Room #: 238-P ADM IN M.R.#: [id number] Admission: 09/18/21 Attend Phys: Dave Murillo MD Discharge: Date of : 46 Report #: [id number] [facility] ED Test Date: 2021-09-18 Test Time: 06:00:36 Pat Name: CLINTON RENTERIA Department: Room: 238 Gender: M Beef Cattle Farmer: : 1950 Requested By: Esdras Ellis Order Number: [id number] MD: Gee Dordao Measurements Intervals [place] Rate: 90 P: 24 MN: 160 QRS: 3 QRSD: 68 T: QT: 464 QTc: 568 Interpretive Statements Sinus rhythm Low voltage, extremity and precordial leads Prolonged QT interval Compared to ECG 09/09/2021 10:31:50 Low QRS voltage now present Prolonged QT interval now present Atrial fibrillation no longer present Electronically Signed On 09-18-2021 11:27:37 FIELD SERVICES MANAGER by Gee Dorado [email or web address] <ELECTRONICALLY SIGNED> By: Gee Dorado MD 09/18/21 1127 9 9 Gee Dorado MD /BRITTANY
[2021-09-18 11:35] VITALS: BP 108/71
[2021-09-18 12:00] VITALS: BP 103/68
[2021-09-18 12:45] VITALS: BP 110/69
--- NOTE | 2021-09-19 11:21 | EKG ---
[address] [employer] [place] [address] ELECTROCARDIOGRAM REPORT Name: CLINTON RENTERIA Room #: 238-[facility] IN M.R.#: [id number] Admission: 09/18/21 Attend Phys: Dave Murillo MD Discharge: 09/18/21 Date of : 46 Report #: [id number] [facility] ED Test Date: 2021-09-18 Test Time: 07:22:16 Pat Name: CLINTON RENTERIA Department: Room: 238 Gender: M Repairer Shoe Sticks: : 1950 Requested By: Dave Murillo Order Number: [id number] MD: Gee Dorado Measurements Intervals [place] Rate: 90 P: NM: QRS: 8 QRSD: 114 T: 150 QT: 427 QTc: 523 Interpretive Statements Probable sinus rhythm Frequent APCs Anteroseptal infarct, age indeterminate Compared to ECG 09/18/2021 06:00:36 No significant change Electronically Signed On 09-19-2021 11:21:14 CLINICAL ADVISOR by Gee Dorado [email or web address] <ELECTRONICALLY SIGNED> By: Gee Dorado MD 09/19/21 1121 1 1 MD HILLARY Chacon
== END 2021-09-18 18:58 | DRG 871 ==
LOC: ER 05:54 → EROBS 07:35 → ICU 11:19
PROVIDERS: Emergency Medicine; Student in an Organized Health Care Education/Training Program; ADMIT Internal Medicine; ATTEND Internal Medicine
DX: A41.9 Sepsis, unspecified organism (principal); J96.01 Acute respiratory failure with hypoxia; G93.41 Metabolic encephalopathy; R65.21 Severe sepsis with septic shock; U07.1 COVID-19; C25.9 Malignant neoplasm of pancreas, unspecified; R18.0 Malignant ascites; N17.9 Acute kidney failure, unspecified; R64 Cachexia; E78.5 Hyperlipidemia, unspecified; F41.9 Anxiety disorder, unspecified; E66.9 Obesity, unspecified; F31.9 Bipolar disorder, unspecified; Z66 Do not resuscitate; K74.60 Unspecified cirrhosis of liver; Z68.25 Body mass index [BMI] 25.0-25.9, adult; Z88.8 Allergy status to other drugs, medicaments and biological substances; Z91.013 Allergy to seafood; Z51.5 Encounter for palliative care
CPT/HCPCS: 10078